=== PATIENT | female | born 1975 | race Caucasian/White ===

== ENCOUNTER 2019-07-27 13:46 | Emergency (ER) | payer MEDICAID, OTHER ==
[~2019-07-27] VITALS: Ht 152.4 cm; Wt 70.0 kg
[2019-07-27] MEDS ORDERED: FLUORESCEIN SODIUM 1MG/STRIP RIGHTEYE ONE (20:00)
[2019-07-27] MEDS ORDERED: TETRACAINE 0.5% OPHTH DROPS 4ML RIGHTEYE ONE (20:00)
[2019-07-27 21:34] VITALS: BP 144/80
== END 2019-07-27 21:35 | disposition home or self-care (01) ==
LOC: ER 14:16
DX: H57.11 Ocular pain, right eye (principal); H11.31 Conjunctival hemorrhage, right eye; B99.8 Other infectious disease; H10.89 Other conjunctivitis
CPT/HCPCS: 99283